=== PATIENT | female | born 1995 | race African-American/Black ===

== ENCOUNTER 2019-02-15 11:55 | Emergency (ER) | payer OTHER, SELFPAY ==
[2019-02-15] MEDS ORDERED: ALPRAZolam 0.5 MG TAB ONE (12:55)
== END 2019-02-15 13:02 | disposition home or self-care (01) ==
LOC: ERS 11:55
DX: F41.0 Panic disorder [episodic paroxysmal anxiety] (principal); F31.9 Bipolar disorder, unspecified
CPT/HCPCS: 36416; 93005

== ENCOUNTER 2019-11-03 09:20 | Emergency (ER) | payer BC ==
[2019-11-03] MEDS ORDERED: Acetaminophen 500 MG TAB ONE (10:07)
[2019-11-03] MEDS ORDERED: Ibuprofen 800 MG TAB ONE (10:07)
--- NOTE | 2019-11-03 10:12 | RAD ---
XR Knee Lt 4 View STANDARD History: Knee pain. Injury Comparison: None. Findings: No acute displaced fracture or malalignment. No significant joint effusion. Impression: No acute osseous abnormality.
--- NOTE | 2019-11-03 10:14 | RAD ---
XR Lumbar Spine 2 Or 3 View History: Injury. Knee pain Comparison: None. Findings: No acute fracture or malalignment. No subluxation. No listhesis. Facets are normal. SI joints are normal. Paraspinal soft tissues are unremarkable. Impression: Normal examination lumbar spine.
== END 2019-11-03 10:44 | disposition home or self-care (01) ==
LOC: ERS 09:20
DX: M54.5 Low back pain (principal); M25.562 Pain in left knee; F41.9 Anxiety disorder, unspecified; F31.9 Bipolar disorder, unspecified; V44.9XXA Unspecified car occupant injured in collision with heavy transport vehicle or bus in traffic accident, initial encounter
CPT/HCPCS: 72100

== ENCOUNTER 2020-12-06 17:07 | Emergency (ER) | payer BC | END 2020-12-06 18:56 | disposition home or self-care (01) | LOC: ERS 17:07 | DX: R51.9 Headache, unspecified (principal); I10 Essential (primary) hypertension | CPT/HCPCS: 99283 ==